=== PATIENT | female | born 1985 | race Caucasian/White ===

== ENCOUNTER 2018-06-05 21:55 | Inpatient (IN) | payer MEDICAID ==
[~2018-06-05] VITALS: Ht 152.4 cm; Wt 93.0 kg
[2018-06-05 21:57] VITALS: Ht 152.4 cm; Wt 93.0 kg
[2018-06-05 22:33] LABS: BASOPHIL % 0.3 % (0-2); PLATELET COUNT 389 x10^3mcL (130-400)
[2018-06-05 22:40] LABS: RED CELL DISTRIBUTION WIDTH 17.1 % (11.5-14.5)
[2018-06-05 23:08] LABS: CALCIUM 7.8 mg/dL (8.5-10.1); CARBON DIOXIDE 26.7 mmol/L (21-32); CHLORIDE SERUM 105 mmol/L (98-107); CREATININE SERUM 0.8 mg/dL (0.6-1.0); GFR1 > 60 mL/min; GLUCOSE SERUM 119 mg/dL (74-106); POTASSIUM SERUM 3.6 mmol/L (3.5-5.1); SODIUM SERUM 141 mmol/L (136-145)
[2018-06-05 23:15] LABS: ALBUMIN 3.7 g/dL (3.4-5.0); ALKALINE PHOSPHATASE 88 U/L (46-116); ALT/SGPT 77 U/L (14-59); AST/SGOT 38 U/L (15-37); BILIRUBIN TOTAL 0.3 mg/dL (0.20-1.00); TOTAL PROTEIN, SERUM 7.3 g/dL (6.4-8.2)
[2018-06-06] VITALS (10 sets, daily range): BP systolic 109–149; BP diastolic 66–91
[2018-06-06] MEDS ORDERED: TRI-SPRINTEC 281 TAB (00:21)
[2018-06-06] MEDS ORDERED: FERROUS SULFAT325 M2 PO (00:21)
[2018-06-06 01:09] LABS: PHOSPHOROUS 2.6 mg/dL (2.5-4.9)
[2018-06-06 01:14] LABS: IRON 94 ug/dL (50-170); TOTAL IRON BINDING CAPACITY 438 ug/dL (250-450)
[2018-06-06 01:15] LABS: T3 TOTAL 1.14 ng/mL
[2018-06-06 01:20] LABS: CHOLESTEROL/HDL RATIO 3.5
[2018-06-06 01:35] LABS: RED BLOOD CELLS 2.91 M/mm3 (4.10-5.10)
[2018-06-06 01:45] LABS: FREE T4 1.28 ng/dL (0.76-1.46); FREE THYROXINE INDEX 2.7 ug/dL (1.4-4.5); T4(THYROXINE) 8.5 ug/dL (4.7-13.3)
[2018-06-06 07:27] LABS: microscopic required? YES; urine erythrocyte 2+ (NEGATIVE)
[2018-06-06 07:46] LABS: BASOPHIL % 0.4 % (0-2); PLATELET COUNT 368 x10^3mcL (130-400)
[2018-06-06 07:52] LABS: AMPHETAMINE QUAL UR NONE DETECTED (See below)
[2018-06-06 07:53] LABS: RED CELL DISTRIBUTION WIDTH 17.5 % (11.5-14.5)
[2018-06-06 08:00] LABS: rbc morphology (normal/abnorm) ABNORMAL (NORMAL)
[2018-06-06 08:32] LABS: CALCIUM 7.9 mg/dL (8.5-10.1); CARBON DIOXIDE 25.3 mmol/L (21-32); CHLORIDE SERUM 108 mmol/L (98-107); CREATININE SERUM 0.7 mg/dL (0.6-1.0); GFR1 > 60 mL/min; GLUCOSE SERUM 106 mg/dL (74-106); PHOSPHOROUS 2.8 mg/dL (2.5-4.9); POTASSIUM SERUM 3.7 mmol/L (3.5-5.1); SODIUM SERUM 142 mmol/L (136-145)
[2018-06-06 19:51] LABS: BASOPHIL % 0.3 % (0-2); PLATELET COUNT 323 x10^3mcL (130-400)
[2018-06-06 21:01] LABS: RED CELL DISTRIBUTION WIDTH 18.2 % (11.5-14.5)
[2018-06-07 00:24] VITALS: BP 113/65
[2018-06-07 05:33] VITALS: BP 122/75
[2018-06-07 06:54] LABS: BASOPHIL % 0.4 % (0-2); PLATELET COUNT 327 x10^3mcL (130-400)
[2018-06-07 07:07] LABS: RED CELL DISTRIBUTION WIDTH 18.7 % (11.5-14.5)
[2018-06-07 08:43] VITALS: BP 118/77
[2018-06-07 12:05] LABS: BASOPHIL % 0.4 % (0-2); PLATELET COUNT 336 x10^3mcL (130-400)
[2018-06-07 12:09] LABS: RED CELL DISTRIBUTION WIDTH 18.4 % (11.5-14.5)
[2018-06-07 12:14] LABS: rbc morphology (normal/abnorm) ABNORMAL (NORMAL)
[2018-06-07 13:19] VITALS: BP 110/75
[2018-06-07] MEDS ORDERED: PHARMASSURE VI500 MG PO (13:31)
[2018-06-07] MEDS ORDERED: FER300 PO (13:32)
[2018-06-07] MEDS ORDERED: IBUPROFEN800 MG PO (14:21)
[2018-06-07 14:24] VITALS: BP 110/75
== END 2018-06-07 15:33 | disposition home or self-care (01) | DRG 952 ==
LOC: ED 21:55 → DU 23:39
PROVIDERS: Emergency Medicine; Family Medicine; General Practice
PROC: 30233N1 Transfusion of Nonautologous Red Blood Cells into Peripheral Vein, Percutaneous Approach (ICD-10-PCS; principal; 2018-06-05)
PROC: 0UDB7ZZ Extraction of Endometrium, Via Natural or Artificial Opening (ICD-10-PCS; 2018-06-06)
DX: D62 Acute posthemorrhagic anemia (principal); N17.0 Acute kidney failure with tubular necrosis; N92.1 Excessive and frequent menstruation with irregular cycle; I10 Essential (primary) hypertension; E04.9 Nontoxic goiter, unspecified; R00.0 Tachycardia, unspecified; R06.82 Tachypnea, not elsewhere classified; R74.0 Nonspecific elevation of levels of transaminase and lactic acid dehydrogenase [LDH]; E66.9 Obesity, unspecified; Z68.41 Body mass index [BMI] 40.0-44.9, adult
CPT/HCPCS: 83880; 84439; 94150; J1885; J2175; J2250; J2704; J3010; J7030; J7050; J7120; P9016; Q0092; Q0163

== ENCOUNTER 2019-10-30 02:35 | Inpatient (IN) | payer MEDICAID ==
[~2019-10-30] VITALS: Ht 165.1 cm; Wt 71.2 kg
[~2019-10-30 02:35] MED LIST: FER300 PO; FERROUS SULFAT325 M2 PO; IBUPROFEN800 MG PO; PHARMASSURE VI500 MG PO; TRI-SPRINTEC 281 TAB
[2019-10-30 02:42] VITALS: Ht 165.1 cm; Wt 71.2 kg
--- NOTE | 2019-10-30 03:06 | NUR ---
PATIENT SEEN WITH COMPLAINT OF SOB AND HEART PLALPITATION X 3 DAYS. SEEN IN NO ACUTE DISTRESS AT THIS TIME.
[2019-10-30 03:10] LABS: BASOPHIL % 0.1 % (0-2); PLATELET COUNT 317 x10^3mcL (130-400); RED CELL DISTRIBUTION WIDTH 12.7 % (11.5-14.5)
[2019-10-30 03:22] LABS: CALCIUM 9.1 mg/dL (8.5-10.1); CARBON DIOXIDE 24.5 mmol/L (21-32); CHLORIDE SERUM 106 mmol/L (98-107); CREATININE SERUM 0.5 mg/dL (0.6-1.0); GFR1 > 60 mL/min; GLUCOSE SERUM 99 mg/dL (74-106); POTASSIUM SERUM 3.2 mmol/L (3.5-5.1); SODIUM SERUM 140 mmol/L (136-145)
[2019-10-30 03:34] LABS: ALBUMIN 3.5 g/dL (3.4-5.0); ALKALINE PHOSPHATASE 225 U/L (46-116); ALT/SGPT 40 U/L (14-59); AST/SGOT 19 U/L (15-37); BILIRUBIN TOTAL 0.56 mg/dL (0.20-1.00); T4(THYROXINE) 20.8 ug/dL (4.7-13.3); TOTAL PROTEIN, SERUM 7.7 g/dL (6.4-8.2)
--- NOTE | 2019-10-30 04:30 | NUR ---
SALINE LOCK INSERTED. FLUID BOLUS IS INFUSING. PATIENT MEDICATED WITH ORAL POTASSIUM AND ATENELOL.
--- NOTE | 2019-10-30 04:51 | NUR ---
PATIENT MEDICATED WITH TAPAZOLE ORDERED. RABBLER IS AT THE BEDSIDE DOING THYROID ULTRASOUND.
--- NOTE | 2019-10-30 04:54 | NUR ---
PATIENT IS HAVING EPISODE OF HYPERVENTILATION AND SOB, HEART RATE WENR TO 115 BPM. MD NOTIFIED.
--- NOTE | 2019-10-30 05:03 | NUR ---
PATIENT IS CALM NOW, AMBULATED TO THE BATHROOM, AND BACK TO THE ROOM.
[2019-10-30] MEDS ORDERED: TENORMIN50 MG PO (05:14)
[2019-10-30] MEDS ORDERED: TAPAZOLE10 MG PO (05:15)
--- NOTE | 2019-10-30 05:45 | NUR ---
REPORT WAS GIVEN TO CAPO. PATIENT WILL BE TRANSPORTED TO TELE.
[2019-10-30 06:10] VITALS: BP 150/84
[2019-10-30 06:12] LABS: AMPHETAMINE QUAL UR NONE DETECTED (See below)
--- NOTE | 2019-10-30 06:30 | NUR ---
RECEIVED PT FROM ED VIA SILVA, ACCOMPANIED BY RN. PT AA&O X4. NO SOB ON ROOM AIR. NO C/O CHEST PAIN. TELE#2 NSR. NO DISTRESS NOTED. IV TO RAC, INTACT. SAFETY MEASURES IN PLACE. INSTRUCTED TO USE THE CALL LIGHT FOR ASSISTANCE. CALL LIGHT WITHIN REACH. FAMILY AT BEDSIDE. WILL ENDORSE CARE TO DAY SHIFT RN.
--- NOTE | 2019-10-30 07:30 | NUR ---
RECEIVED PT FROM BLOCK CUTTER NURSE. PT SITTING UPRIGHT IN BED HAVING BREAKFAST, AOX4, RESP E/U ON RA. C/O MILD SOB DUE TO NASAL CONGESTION, 02 SAT 100%. DENIES CHEST PAIN AT THIS TIME. MAINTAINED HOB AT 30 DEGREES. ON TELE 2 SHOWING NSR. HR: 99. IV TO RAC W/ NO SIGNS OF INFILTRATION, IVF INFUSING WELL. BED IN LOWEST POSITION AND CALL LIGHT WITHIN REACH. WILL CONTINUE TO MONITOR.
[2019-10-30 09:12] VITALS: BP 122/64
[2019-10-30 11:43] VITALS: BP 132/65
--- NOTE | 2019-10-30 15:19 | NUR ---
PT RESTING IN BED, AOX4, RESP E/U ON RA. C/O HEADACHE AT THIS TIME RATED 4/10. MEDICATED ORDERED PER EMAR FOR PAIN. COMFORT MEASURES IMPLEMENTED. BED IN LOWEST POSITION AND CALL LIGHT WITHIN REACH. FAMILY AT BEDSIDE. WILL CONTINUE TO MONITOR.
[2019-10-30 17:19] VITALS: BP 136/71
--- NOTE | 2019-10-30 19:20 | NUR ---
PT AMBULATING DOWN HALLWAY, ESCORTED BY , GAIT BALANCED/STEADY. BROUGHT BACK TO ROOM, AOX4, RESP E/U ON RA. DENIES CHEST PAIN OR SOB. NO ACUTE DISTRESS NOTED. SALINE LOCKED TO RAC W/ NO ERYTHEMA OR EDEMA. BED IN LOWEST POSITION AND CALL LIGHT WITHIN REACH. CARE ENDORSED TO ROSANA MILLER.
--- NOTE | 2019-10-30 19:38 | NUR ---
RECEIVED PT FROM DAY SHIFT RN. PT AAOX4 DENIES BAEZ/DIZZINESS. BREATHING EVEN AND UNLABORED, DENIES SOB. TELE #2 SR HR 79, PT DENIES CHEST PAIN/PRESSURE. PT AMBULATORY. DENIES ANY PAIN/DISCOMFORT. CALL BUTTON WITHIN REACH. SAFETY PRECAUTIONS IN PLACE. AT THIS TIME. WILL CONTINUE TO MONITOR.
--- NOTE | 2019-10-30 20:16 | NUR ---
PT REPORTED HAVING "THYROID PAIN 9/10" MEDICATED PER EMAR. CALL BUTTON WITHIN REACH. SAFETY PECAUTIONS IN PLACE. WILL MONITOR.
[2019-10-30 21:22] VITALS: BP 131/72
--- NOTE | 2019-10-31 01:30 | NUR ---
PLACED PT ON NC 1.5L/MIN PER PT FEELING SOB. 02SAT 95%. WILL CONTINUE TO MONITOR.
--- NOTE | 2019-10-31 02:30 | NUR ---
ROUNDS MADE. PT RESTING. BREATHING EVEN AND UNLABORED, NO SIGNS OF DISTRESS. CALL BUTTON WITHIN REACH. SAFETY PRECAUTIONS IN PLACE. WILL CONTINUE TO MONITOR.
--- NOTE | 2019-10-31 04:42 | NUR ---
PT SLEPT ON AND OFF THROUGHOUT THE NIGHT WITH NO SIGNS OF DISTRESS. IV PATENT, SL. MEDICATED PER EMAR. PT AMBULATORY WITH BRP. PT DENIES ANY PAIN AT THIS TIME. NO SIGNS OF ACUTE DISTRESS NOTED. CALL BUTTON WITHIN REACH. SAFETY PRECAUTIONS IN PLACE. WILL CONTINUE TO MONITOR AND ENDORSE CARE TO DAY SHIFT RN.
[2019-10-31 05:45] VITALS: BP 147/74
[2019-10-31 06:10] LABS: BASOPHIL % 0.4 % (0-2); PLATELET COUNT 330 x10^3mcL (130-400); RED CELL DISTRIBUTION WIDTH 13.1 % (11.5-14.5)
[2019-10-31 06:32] LABS: CALCIUM 9.1 mg/dL (8.5-10.1); CARBON DIOXIDE 23.8 mmol/L (21-32); CHLORIDE SERUM 107 mmol/L (98-107); CREATININE SERUM 0.5 mg/dL (0.6-1.0); GFR1 > 60 mL/min; GLUCOSE SERUM 96 mg/dL (74-106); MAGNESIUM 1.8 mg/dL (1.8-2.4); PHOSPHOROUS 5.5 mg/dL (2.5-4.9); POTASSIUM SERUM 4.1 mmol/L (3.5-5.1); SODIUM SERUM 142 mmol/L (136-145)
--- NOTE | 2019-10-31 07:20 | NUR ---
RECEIVED PATIENT AWAKE/ALERT WALKING AROUND THE ROOM, NO C/O PAIN. TELE #2 ST W/ HR 103 NOTED. POC EXPLAINED. CALL LIGHT WITHIN REACH.
--- NOTE | 2019-10-31 07:25 | NUR ---
PT AWAKE DENIES ANY PAIN. NO SIGNS OF DISTRESS. ENDORSED CARE TO DAY SHIFT RN, ALL QUESTIONS ADDRESSED.
[2019-10-31 08:05] VITALS: BP 142/85
--- NOTE | 2019-10-31 09:16 | NUR ---
PATIENT SAT UP IN BED APPEAR VERY ANXIOUS, PATIENT WANT TO SPEAK WITH DOCTOR REGARD TRANSFER INFORM PATIENT DOCTOR WILL BE ROUNDING SOON, ATIVAN 1MG PO AND PO MEDS ADMINISTERED, PATIENT ABLE TO SWALLOW OKAY, STATED FEEL "STUCKS" WHEN EAT. ENCOURAGE TO EAT SLOW WITH SMALL BITE. NEEDS MET. CONT TO MONITOR.
--- NOTE | 2019-10-31 10:18 | NUR ---
DR. MARTIN WITH RESIDENTS SEEN PATIENT AT BEDSIDE DISCUSS POC WITH PATIENT AND FAMILY MEMBERS, PLAN FOR [place] ON SATURDAY. ALL QUESTIONS ADDRESSED BY DR. MARTIN.
--- NOTE | 2019-10-31 11:35 | NUR ---
PATIENT RESTING IN BED CALM NO DISTRESS NOTED. REMAIN AT BEDSIDE. CONT TO MONITOR.
[2019-10-31 12:31] VITALS: BP 137/62
--- NOTE | 2019-10-31 13:38 | NUR ---
PATIENT IN BED C/O DIZZINESS, EXPLAIN TO PATIENT ATIVAN CAUSE DIZZINESS AND VITALS STABLE. TAPAZOLE 10MG PO ADMINISTERED. FAMILY MEMBER AT BEDSIDE. CONT TO MONITOR.
[2019-10-31 16:06] VITALS: BP 124/70
--- NOTE | 2019-10-31 16:08 | NUR ---
PATIENT RESTING WITH EYES CLOSED, NO DISTRESS NOTED. TELE SR WITH HR 82 NOTED. CONT TO MONITOR.
--- NOTE | 2019-10-31 17:01 | NUR ---
PAGE DR. HELMS FOR MEDICATION, PATIENT C/O CHEST PAIN BUT RN ASSESS PATIENT POINT TO EPIGASTRIC AREA, NO RADIATION. INFORM PATIENT WILL CALL DOCTOR FOR MEDICATION. TELE WITH SR 85 NOTED.
--- NOTE | 2019-10-31 17:26 | NUR ---
PATIENT RESTING IN BED ON THE PHONE, AT BEDSIDE, PEPCID 10MG PO ADMINISTERED. NEEDS MET. KITCHEN BRING PATIENT DINNER TRAY AND LEFT AT BEDSIDE. CONT TO MONITOR.
--- NOTE | 2019-10-31 18:25 | NUR ---
PATIENT ATE HER DINNER AND TOLERATED, STATED EPIGASTRIC PAIN IS RELIEVED. NEEDS MET. CONT TO MONITOR.
--- NOTE | 2019-10-31 19:25 | NUR ---
RECIEVED PT RESTING IN BED WITH NO ACUTE DISTRESS AND FAMILY AT BEDSIDE, ASSESMENT PERFORMED AT THIS TIME, PT IS A/OX4 NO COMPLAINTS OF BAEZ OR DIZZINESS, PT DENIES PAIN OR SOB, PT IS APPREHENSIVE AND JITTERY, SWELLING OF THE NECK, TELE 2, NSR, ALL PT NEEDS ATTENDED TO, SAFETY PRECAUTIONS IN PLACE, WILL CONTINUE TO MONITOR
[2019-10-31 20:15] VITALS: BP 148/83
--- NOTE | 2019-10-31 21:00 | NUR ---
PT COMPLAINING OF BAEZ, ADMINISTERED TYLENOL PER PRN ORDER, WILL CONTINUE TO MONITOR
--- NOTE | 2019-10-31 21:40 | NUR ---
DR REEVES INFORMED THAT [facility] CALLED AND SAID PT NEEDS TEST, TO BE OFF THYROID MEDICATION FOR 1 WEEK, AND PT CANT HAVE SEAFOOD FOR 2 WEEKS PRIOR TO TEST, NO NEW ORDERS AT THIS TIME
--- NOTE | 2019-10-31 22:12 | NUR ---
PT REPORTS BAEZ HAS IMPROVED TO A TOLERABLE LEVEL, 2/, ALL NEEDS ATTENDED TO, SAFETY PRECAUTIONS IN [place], WILL CONTINUE TO MONITOR
--- NOTE | 2019-11-01 00:12 | NUR ---
PT REPORTS ANXIOUSNESS AND IS REQUESTING SOMETHING TO CALM HER DOWN, ADMINISTERED ATIVAN PO PER PRN ORDER, WILL CONTINUE TO MONITOR
--- NOTE | 2019-11-01 05:11 | NUR ---
PT REMAINED IN BED THROUGH NIGHT WITH ONE EPISODE OF ANXIETY DURING SHIFT THAT WAS TREATED WITH PRN ATIVAN TO EFFECT, PT HAD NO COMPLAINTS OF PAIN OR SOB THROUGH THE [facility], ALL PT NEEDS ATTENDED TO, WILL CONTINUE TO MONITOR AND ENDORSE CARE TO ONCOMING SHIFT
[2019-11-01 05:55] VITALS: BP 151/91
[2019-11-01 06:34] LABS: CALCIUM 9.1 mg/dL (8.5-10.1); CARBON DIOXIDE 24.6 mmol/L (21-32); CHLORIDE SERUM 105 mmol/L (98-107); CREATININE SERUM 0.5 mg/dL (0.6-1.0); GFR1 > 60 mL/min; GLUCOSE SERUM 105 mg/dL (74-106); MAGNESIUM 1.8 mg/dL (1.8-2.4); PHOSPHOROUS 4.3 mg/dL (2.5-4.9); POTASSIUM SERUM 3.9 mmol/L (3.5-5.1); SODIUM SERUM 141 mmol/L (136-145)
[2019-11-01 06:35] LABS: BASOPHIL % 0.3 % (0-2); PLATELET COUNT 336 x10^3mcL (130-400); RED CELL DISTRIBUTION WIDTH 13.1 % (11.5-14.5)
--- NOTE | 2019-11-01 07:25 | NUR ---
RECEIVED PT RESTING IN BED. NO ACUTE DISTRESS. AAOX4. RESP EVEN AND UNLABORED ON RA. CALM AT THIS TIME. STATED SHE WANTED TO SLEEP. IV TO RAC, NO REDNESS OR SWELLING. BED IN LOW POSITION, CALL LIGHT WITHIN REACH. WILL CONTINUE TO MONITOR.
[2019-11-01 08:30] VITALS: BP 112/76; BP 146/91
--- NOTE | 2019-11-01 10:06 | NUR ---
PT C/O PAIN TO RAC IV. IV DC'D WITH CATHETER INTACT. WILL CONTINUE TO MONITOR.
[2019-11-01 10:07] VITALS: BP 123/70
[2019-11-01] MEDS ORDERED: ATENOLOL100 MG PO (10:47)
[2019-11-01] MEDS ORDERED: IBUPROFEN800 MG PO (10:48)
[2019-11-01] MEDS ORDERED: TAPAZOLE10 MG PO (10:48)
[2019-11-01] MEDS ORDERED: ATI1 PO (10:50)
[2019-11-01] MEDS ORDERED: ATIVAN1 MG PO (11:01)
--- NOTE | 2019-11-01 13:30 | NUR ---
PT DISCHARGED TO HOME IN NO ACUTE DISTRESS. AWAKE, ALERT, AND ORIENTED. VSS. AMBULATORY. HERB WAYNE PRESENT FOR TRANSLATION. DISCHARGE EDUCATION PROVIDED, PT VERBALIZED UNDERSTANDING. INSTRUCTED PT TO FOLLOW UP WITH PCP. TELE REMOVED. BELONGINGS WITH PT. ALLYN CHILEL ACCOMPANIED PT TO LOBBY.
== END 2019-11-01 13:29 | disposition home or self-care (01) | DRG 427 ==
LOC: ED 02:35 → DU 05:06 → EDBEDREQ 05:11 → DU 06:01
PROVIDERS: Emergency Medicine; ADMIT Internal Medicine
DX: E05.20 Thyrotoxicosis with toxic multinodular goiter without thyrotoxic crisis or storm (principal); E83.39 Other disorders of phosphorus metabolism; R00.2 Palpitations; I10 Essential (primary) hypertension; E87.6 Hypokalemia; F41.9 Anxiety disorder, unspecified; Z68.26 Body mass index [BMI] 26.0-26.9, adult
CPT/HCPCS: G0378; J2270; J7030; Q0092

== ENCOUNTER 2019-12-07 01:00 | Emergency (ER) | payer MEDICAID ==
[~2019-12-07] VITALS: Ht 152.4 cm; Wt 72.1 kg
[~2019-12-07 01:00] MED LIST changes: +ATENOLOL100 MG PO; +ATI1 PO; +ATIVAN1 MG PO; +TAPAZOLE10 MG PO; +TENORMIN50 MG PO
[2019-12-07 01:03] VITALS: Ht 152.4 cm; Wt 72.1 kg
[2019-12-07 01:45] LABS: CALCIUM 8.8 mg/dL (8.5-10.1); CARBON DIOXIDE 25.6 mmol/L (21-32); CHLORIDE SERUM 105 mmol/L (98-107); CREATININE SERUM 0.6 mg/dL (0.6-1.0); GFR1 > 60 mL/min; GLUCOSE SERUM 109 mg/dL (74-106); POTASSIUM SERUM 3.5 mmol/L (3.5-5.1); SODIUM SERUM 140 mmol/L (136-145)
[2019-12-07 01:50] LABS: ALBUMIN 4.1 g/dL (3.4-5.0); ALKALINE PHOSPHATASE 433 U/L (46-116); ALT/SGPT 79 U/L (14-59); AST/SGOT 42 U/L (15-37); BILIRUBIN TOTAL 0.29 mg/dL (0.20-1.00); TOTAL PROTEIN, SERUM 8.2 g/dL (6.4-8.2)
[2019-12-07 02:33] VITALS: BP 119/64
== END 2019-12-07 02:33 | disposition home or self-care (01) ==
LOC: ED 01:00
PROVIDERS: Emergency Medicine
DX: R51 Headache (principal); I10 Essential (primary) hypertension; Z86.2 Personal history of diseases of the blood and blood-forming organs and certain disorders involving the immune mechanism
CPT/HCPCS: 36415; J1885